=== PATIENT | female | born 1995 | race Caucasian/White ===

== ENCOUNTER 2017-06-25 17:15 | Emergency (ER) | payer SELFPAY ==
[2017-06-25 17:20] VITALS: BP 105/63; PULSE 118; TEMP 98.9; BMI 29.8
--- NOTE | 2017-06-25 17:57 | PDOC ---
History of Present Illness - General History Source: Patient Exam Limitations: No Limitations - History of Present Illness Initial Comments: 06/25/17 18:23 The patient is a 22 year old 4 months female, with no significant past medical history, who presents to the emergency department with, two days of nose congestion, body aches, and cough. She reports pain in her uterus when coughing. She reports an episode of emesis after coughing. She is positive for sick contacts. She is not up to date with her flu shot. She denies taking anything for her symptoms. She denies recent fevers, chills, headache or dizziness. She denies recent nausea, vomit, diarrhea or constipation. She denies recent dysuria, frequency, urgency or hematuria. She denies recent chest pain or shortness of breath. Allergies: NKA Past surgical history: None reported. Social history: Nonsmoker. Denies EtOH use and recreational drug use. <Joaquin Green - Last Filed: 06/25/17 19:05> <Jamar Noel - Last Filed: 06/28/17 08:47> - General Chief Complaint: Cold Symptoms Stated Complaint: COUGH, CONGESTION Time Seen by Provider: 06/25/17 17:16 Past History <Joaquin Green - Last Filed: 06/25/17 19:05> - Past Medical History COPD: No Other medical history: DENIES - Surgical History Cholecystectomy: Yes - Suicide/Smoking/Psychosocial Hx Smoking History: Never smoked Hx Alcohol Use: No Drug/Substance Use Hx: No Substance Use Type: None <Jamar Noel - Last Filed: 06/28/17 08:47> - Past Medical History Allergies/Adverse Reactions: Allergies Allergy/AdvReac Type Severity Reaction Status Date / Time No Known Allergies Allergy Verified 06/25/17 17:16 Home Medications: Ambulatory Orders Oseltamivir Phosphate [Tamiflu] 75 mg PO BID #10 capsule 06/25/17 Prenat 115/Iron Fum/Folic/Dss [ 19 Tablet] 1 each PO DAILY 06/25/17 Review of Systems - Review of Systems Constitutional: Yes: Other (Body aches.) HEENTM: Yes: Nose Congestion Respiratory: Yes: Cough ABD/GI: Yes: Vomiting All Other Systems: Reviewed and Negative <Joaquin Green - Last Filed: 06/25/17 19:05> *Physical Exam - Vital Signs Last Vital Signs Temp Pulse Resp BP Pulse Ox 98.9 F 118 H 17 105/63 99 06/25/17 17:16 06/25/17 17:16 06/25/17 17:16 06/25/17 17:16 06/25/17 17:16 - Physical Exam General Appearance: Yes: Nourished, Appropriately Dressed HEENT: positive: EOMI, GORDON, Normal ENT Inspection, Normal Voice, TMs Normal, Pharynx Normal Neck: positive: Supple Respiratory/Chest: positive: Normal Breath Sounds, Other (Cough.) Female Pelvic Exam: positive: other (Pelvic discomfort when coughing. ) <Joaquin Green - Last Filed: 06/25/17 19:05> - Vital Signs Last Vital Signs Temp Pulse Resp BP Pulse Ox 98.9 F 118 H 17 105/63 99 06/25/17 17:16 06/25/17 17:16 06/25/17 17:16 06/25/17 17:16 06/25/17 17:16 <Jamar Noel - Last Filed: 06/28/17 08:47> Medical Decision Making - Medical Decision Making 06/25/17 19:02 Patient is suspected to have a viral illness i.e. flu. Patient reports discomfort in the abdomen, a ultrasound of the pelvis is ordered for further evaluation. Patient is signed out to the overnight physician Dr. Mary Ha. <Joaquin Green - Last Filed: 06/25/17 19:05> *DC/Admit/Observation/Transfer - Attestations Scribe Attestion: 06/25/17 18:41 Documentation prepared by Joaquin Green, acting as paramedical aide for Jamar Noel MD. <Joaquin Green - Last Filed: 06/25/17 19:05> <Jamar Noel - Last Filed: 06/28/17 08:47> Diagnosis at time of Disposition: Influenza-like illness - Discharge Dispostion Disposition: HOME Condition at time of disposition: Stable - Prescriptions Prescriptions: Oseltamivir Phosphate [Tamiflu] 75 mg PO BID #10 capsule - Patient Instructions Additional Instructions: Tylenol as needed for fever body aches or headaches. Take Tamiflu one tablet twice a day for 5 days. Follow-up with your OB tomorrow if you still have any pelvic lower abdominal pain. Return to the emergency department immediately with ANY new, persistent or worsening symptoms. Continue any medications as previously prescribed by your physician. You should follow up with your primary doctor as soon as possible regarding today's emergency department visit. . Please make sure your doctor reviews the results of your emergency evaluation. Thank you for coming to the Emergency Department today for your care. It was a pleasure to see you today. Please note that your evaluation is INCOMPLETE until you follow-up with your doctor.
[2017-06-25] MEDS ORDERED: OSELTAMIVIR PHOSPHATE 75 MG CAPSULE PO ONE (18:26)
[2017-06-25] MEDS ORDERED: ACETAMINOPHEN 325 MG TABLET (FP) ONE (18:43)
[2017-06-25] MEDS ORDERED: OSELTAMIVIR PHOSPHATE 75 MG CAPSULE ONE (18:44)
[2017-06-25] MEDS ORDERED: ACETAMINOPHEN 325 MG TABLET (FP) PO ONE (18:44)
--- NOTE | 2017-06-25 19:53 | PDOC ---
*Physical Exam - Vital Signs Last Vital Signs Temp Pulse Resp BP Pulse Ox 98.9 F 118 H 17 105/63 99 06/25/17 17:16 06/25/17 17:16 06/25/17 17:16 06/25/17 17:16 06/25/17 17:16 ED Treatment Course - Medications Given in the ED: ED Medications Discontinued Medications Generic Name Dose Route Start Last Admin Trade Name Kee PRN Reason Stop Dose Admin Acetaminophen 650 mg 06/25/17 18:44 06/25/17 18:55 Tylenol - PO 06/25/17 18:45 650 mg ONCE ONE Administration Oseltamivir Phosphate 75 mg 06/25/17 18:26 06/25/17 18:55 Tamiflu - PO 06/25/17 18:27 75 mg ONCE ONE Administration Progress Note - Progress Note Progress Note: This is a 22-year-old female who was seen by Dr. Noel Care was transferred to [place] at 7 PM. Patient has flulike symptoms was started on Tamiflu. Patient was also complaining of pelvic pain and is 16 weeks . Patient had an ultrasound that showed a normal intrauterine Patient discharged and will follow-up with her OB if symptoms persist. *DC/Admit/Observation/Transfer Diagnosis at time of Disposition: Influenza-like illness - Discharge Dispostion Disposition: HOME Condition at time of disposition: Stable - Referrals - Patient Instructions Additional Instructions: Tylenol as needed for fever body aches or headaches. Take Tamiflu one tablet twice a day for 5 days. Follow-up with your OB tomorrow if you still have any pelvic lower abdominal pain. Return to the emergency department immediately with ANY new, persistent or worsening symptoms. Continue any medications as previously prescribed by your physician. You should follow up with your primary doctor as soon as possible regarding today's emergency department visit. . Please make sure your doctor reviews the results of your emergency evaluation. Thank you for coming to the Emergency Department today for your care. It was a pleasure to see you today. Please note that your evaluation is INCOMPLETE until you follow-up with your doctor. - Post Discharge Activity
== END 2017-06-25 20:01 | disposition home or self-care (01) ==
LOC: FER 17:15
DX: O26.892 Other specified pregnancy related conditions, second trimester (principal); Z3A.00 Weeks of gestation of pregnancy not specified; J11.1 Influenza due to unidentified influenza virus with other respiratory manifestations
CPT/HCPCS: 76801-TC; 99281-25